=== PATIENT | female | born 2005 | race Two or more races ===

== ENCOUNTER 2024-05-27 12:28 | Emergency (ER) | payer OTHER ==
[~2024-05-27] VITALS: Ht 154.9 cm; Wt 53.5 kg
[2024-05-27] MEDS: diphenhydrAMINE HCL 50 MG/ML VIAL IV ONE (13:30)
[2024-05-27] MEDS: METOCLOPRAMIDE HCL 10 MG/2 ML VIAL IV ONE (13:30)
[2024-05-27] MEDS ORDERED: diphenhydrAMINE HCL 50 MG/ML VIAL ONE (13:35)
[2024-05-27] MEDS ORDERED: METOCLOPRAMIDE HCL 10 MG/2 ML VIAL ONE (13:35)
[2024-05-27] MEDS: IV NS 0.9% 1,000 ML BAG IV ONE (13:40)
[2024-05-27] MEDS: KETOROLAC TROMETHAMINE 15 MG/ML VIAL IV ONE (14:15)
[2024-05-27] MEDS ORDERED: KETOROLAC TROMETHAMINE 15 MG/ML VIAL ONE (14:25)
[2024-05-27 15:30] VITALS: BP 97/66; TEMP 98.6
[2024-05-27] MEDS ORDERED: IBUP-1957 PO (15:38)
[2024-05-27] MEDS ORDERED: ACET-2605 PO (15:38)
[2024-05-27 15:56] VITALS: O2SAT 98
== END 2024-05-27 15:58 | disposition home or self-care (01) ==
LOC: ER 12:37
DX: K08.89 Other specified disorders of teeth and supporting structures (principal); R51.9 Headache, unspecified; R50.9 Fever, unspecified; R11.0 Nausea
CPT/HCPCS: 99284; 96374; 96375; 96361; 87070; 87880; J1200; J2765; J7030 ×2; A4223; J1885; 86403-TC

== ENCOUNTER 2024-07-04 04:17 | Emergency (ER) | payer BC, OTHER ==
[~2024-07-04] VITALS: Ht 154.9 cm; Wt 53.5 kg
[~2024-07-04 04:17] MED LIST: ACET-2605 PO; IBUP-1957 PO
[2024-07-04] MEDS ORDERED: ALBUTEROL FS 2.5 MG/0.5 ML VIAL.NEB ONE (04:47)
[2024-07-04] MEDS: dexaMETHasone SOD PHOSPHATE 4 MG/ML VIAL IM ONE (04:50)
[2024-07-04] MEDS ORDERED: dexaMETHasone SOD PHOSPHATE 1 ML ONE (04:50)
[2024-07-04] MEDS: ALBUTEROL FS 2.5 MG/0.5 ML VIAL.NEB NEB ONE (04:55)
[2024-07-04 04:56] VITALS: O2SAT 96
[2024-07-04 05:08] VITALS: O2SAT 99
[2024-07-04 05:27] LABS: PREGNANCY TEST URINE QUAL NEGATIVE (NEGATIVE)
[2024-07-04] MEDS ORDERED: PRED50TA PO (05:54)
[2024-07-04 06:00] VITALS: BP 130/78; TEMP 98.2; O2SAT 99
== END 2024-07-04 06:01 | disposition home or self-care (01) ==
LOC: ER 04:19
DX: J98.01 Acute bronchospasm (principal); Z79.52 Long term (current) use of systemic steroids
CPT/HCPCS: 99285; 71045; 96372; 84703; 94640; J1100